=== PATIENT | male | born 1970 | race Two or more races ===

== ENCOUNTER 2024-06-22 07:45 | Day surgery (SDC) | payer MEDICAID, SELFPAY ==
[2024-06-22] VITALS (10 sets, daily range): BP systolic 128–170; BP diastolic 83–105; PULSE 66–88; RESP 12–22; TEMP 36.2–36.8; O2SAT 95–100; BMI 28.1
[2024-06-22] MEDS: DiphenhydrAMINE INJ 50 MG/ML VIAL 25 MG IV (08:54)
[2024-06-22] MEDS: fentaNYL CIT INJ 50 mCg/ML AMP 2ML (ASD USE ONLY) IV (09:00)
[2024-06-22] MEDS: MIDAZOLAM INJ 1 MG/ML VIAL 2 ML (ASD USE ONLY) 2 MG IV (09:03)
--- NOTE | 2024-06-22 11:16 | SUR.PHASEII ---
0921: Pt received for recovery. Report from Shelby SCHAEFER. Pt sleepy. Easily aroused. Resp even, unlabored. VS stable. Pt states he has abdominal cramping and pressure. Pt placed in left lateral position in attempt to expel flatus. 0930: Pt placed in right lateral position. Is passing moderate amount of flatus. 0945: Pt stated much relief and no pain. Is sitting up tolerating po fluids with no difficulty swallowing and no n/v. 0950: Pt fully awake, oriented x3. Pt assisted to restroom. Ambulation steady. 1008: Pt dressed and in transport chair. Stated he passed flatus and is in no pain. Pt and stated understanding of discharge instructions. Pt discharged from [facility] in stable condition.
== END 2024-06-22 10:08 | disposition home or self-care (01) ==
PROVIDERS: Referring Provider Surgery; Visit Provider Surgery
PROC: 0DBE8ZX Excision of Large Intestine, Via Natural or Artificial Opening Endoscopic, Diagnostic (ICD-10-PCS; CPT 45380; principal; 2024-06-22 09:15)
DX: D12.3 Benign neoplasm of transverse colon (principal); Z80.0 Family history of malignant neoplasm of digestive organs; D12.5 Benign neoplasm of sigmoid colon; K64.8 Other hemorrhoids; K57.31 Diverticulosis of large intestine without perforation or abscess with bleeding
CPT/HCPCS: 45385; J1200; J2250; J3010

== ENCOUNTER 2024-07-03 13:40 | Outpatient (AMB) | payer MEDICAID, SELFPAY ==
[2024-07-03 13:47] VITALS: BP 156/84; PULSE 65; RESP 19; TEMP 36.8; O2SAT 98; BMI 28.5
--- NOTE | 2024-07-03 13:47 | PD.GSCLVISIT ---
Vital Signs - [facility] 07/03/24 13:47 Height 1.57 m Height Method Stated Weight 70.364 kg Weight Measurement Method Standing Scale BMI 28.5 BP 156/84 H Blood Pressure Source Automatic Cuff Blood Pressure Location Left Upper Arm Position Sitting Respiration 19 Pulse 65 Pulse Source Monitor Temp 98.3 F Temp Source Temporal Artery Scan Pulse Oximetry (%) 98 Oxygen Delivery Method Room Air Med/Allergies Allergies & Medications Allergies No Known Allergies Allergy (Verified 07/03/24 13:48) Medication Reconciliation No Known Home Medications 11/25/23 [History Confirmed 07/03/24] MA Intake Visit Data Collection New Patient or Established: Established Patient (seen at [facility] within 3 years) Seen by Clinical Staff ONLY (RN/MA): No Reason for Visit:: COLON F/U Pain Present Currently: No Shoe Patternmaker Required: No PCP or OBGYN visit in last 3 months: Yes Hx Now: No Do You Feel Safe at Home: Yes Authorities Contacted: N/A Smoking Status Smoking Status: Former smoker Immunization / Flu Flu Vaccine in the Last 12 Months: No Flu Vaccine Exclusion Criteria: No Exclusion Criteria Past Medical History Past Medical History NEUROLOGIC: Negative Neurological Disorders or Seizures CARDIAC: Negative Cardiac Disorders or Congestive Heart Failure RESPIRATORY: Negative Chronic Obstructive Pulmonary Disease (COPD) GASTROINTESTINAL: Negative Gastrointestinal Disorders GENITOURINARY: Negative Genitourinary Disorders or Renal Disease ENDOCRINE: Negative Endocrine Disorders, Diabetes Mellitus Type 1 or Diabetes Mellitus Type 2 HEMATOLOGIC: Negative Blood Disorders OTHER HISTORY: Negative Hospitalization, Down Syndrome, Developmental Delay, Falls, Blood Transfusions or Anesthesia Reactions Family History FAMILY HISTORY: Positive Family Cancer Surgical History SURGICAL: Positive Tonsillectomy Social History SMOKING STATUS: Smoking status: Former smoker ALCOHOL: Alcohol Intake: Former HOUSING: Housing: House HPI HPI Narrative 53M with family history of colon CA here to discuss colonoscopy results. Pt reports feeling well overall with no complaints ROS Review of Systems Systems Reviewed: All systems reviewed, normal except as documented Objective/Exam General General Appearance: alert, cooperative and well groomed Resp Respiratory exam: Absent respiratory distress Assessment & Plan Diagnosis / Problem List (1) Encounter to discuss colonoscopy results: Status: Acute Assessment & Plan: 53M with family history of colon CA s/p colonoscopy 06/22/24 with findings of diverticulosis, two tubular adenomas (one 1.1cm) and hemorrhoids here to discuss results. I encouraged pt to maximize bowel habits by drinking plenty of water and taking fiber; I also informed him his next scope should be in 3 years due to one tubular adenoma >1cm. All questions were answered and pt expressed understanding Office Procedures GNS Level of Care Nursing/Assessment Patient Status: Established Patient Nursing Assessment/Reassesment: Medication Reconciliation, Update PMH in EMR and Vital Signs Coordination of Care: Complex Care and Chronic Disease 1-5, Consent,records obtained, informed consent, Education Simp Pt/Fam, Results/Orders obtained and Staff clarify orders Established Patient Charge Established Patient Point Assignment: 90 Established Patient Point Charge: EP Level 3 (80-115) Patient Portal Questionaires Social History Living Situation History Housing: House Tobacco History Smoking Status: Former smoker Alcohol History Alcohol Intake: Former Domestic Abuse History Do You Feel Safe at Home: Yes Review of Systems Report any current symptoms Only answer those that you have currently: Past Medical History Past Medical History Have you ever been diagnosed with any of the following: Neurological Problems Seizures: No Cardiology Problems Congestive Heart Failure: No Respiratory Problems Chronic Obstructive Pulmonary Disease (COPD): No Genital/Urinary Problems Renal Disease: No Endocrine Problems Diabetes Mellitus Type 1: No Diabetes Mellitus Type 2: No Other Problems Hospitalization: No Down Syndrome: No Developmental Delay: No Falls: No Blood Transfusions: No Anesthesia Reactions: No
== END 2024-07-03 13:55 | disposition home or self-care (01) ==
LOC: HODSRG 13:40
PROVIDERS: Supervising Provider Surgery; Visit Provider Surgery
DX: Z71.2 Person consulting for explanation of examination or test findings (principal); K57.90 Diverticulosis of intestine, part unspecified, without perforation or abscess without bleeding; D12.6 Benign neoplasm of colon, unspecified; K64.9 Unspecified hemorrhoids
CPT/HCPCS: 99213; G0463